=== PATIENT | male | born 1955 | race Caucasian/White ===

== ENCOUNTER 2016-06-06 17:45 | Emergency (ER) | payer BC ==
[~2016-06-06] VITALS: Ht 185.4 cm; Wt 117.9 kg
[2016-06-06 18:07] VITALS: BP 126/62
--- NOTE | 2016-06-06 18:21 | Emergency Room Report ---
History of Present Illness General Chief Complaint: General Complaint Source: Patient Present Illness HPI 60-year-old male presents emergency department complaining of needing his Port-A -Cath to be flushed. Patient states he has had his Port-A-Cath in place for several years and he previously received chemotherapy in an patient states that every 5 weeks he is to have it flushed and he has gone a week past due. he denies any symptoms at this time denies erythema increased temperature palpation and patient denies fatigue, weakness, nausea, vomiting, fevers, chills. Patient denies other complaints. Denies CP, Palpitations, LOC, AMS, dizziness, Changes in Vision, Sensation, paresthesias, or a sudden severe headache. Allergies: Coded Allergies: PENICILLIN G (Verified Allergy, Unknown, 06/06/16) Patient History Past Medical History: see triage record Past Surgical History: none Pertinent Family History: none Immunizations: UTD Reviewed Nursing Documentation: PMH: Agreed, PSxH: Agreed Nursing Documentation-PMH Past Medical History: No History, Except For Hx Cancer: Yes Hx Cerebrovascular Accident: Yes - 2012 Review of Systems All Other Systems: negative except mentioned in HPI Physical Exam Vital Signs Date Time Temp Pulse Resp B/P Pulse Ox O2 Delivery O2 Flow Rate FiO2 06/06/16 18:00 97.7 116 16 117/74 99 Room Air Sp02 EP Interpretation: reviewed, normal General Appearance: no apparent distress, alert, GCS 15, non-toxic Head: normocephalic, atraumatic Eyes: bilateral eye PERRL, bilateral eye normal inspection ENT: hearing grossly normal, normal pharynx, no angioedema, normal voice Neck: full range of motion, supple/symm/no masses Respiratory: chest non-tender, lungs clear, normal breath sounds, speaking full sentences Cardiovascular #1: regular rate, rhythm, no edema Gastrointestinal: non tender, no guarding Rectal: deferred Musculoskeletal: back normal, gait/station normal, normal range of motion, non- tender, no calf tenderness Neurologic: alert, oriented x3, responsive, motor strength/tone normal, sensory intact, speech normal Psychiatric: judgement/insight normal, memory normal, mood/affect normal, no suicidal/homicidal ideation Skin: normal color, no rash, warm/dry, well hydrated, other - subdermal palpable fb consistent with permacath located in right anterior upper chest, no erytema, no bruising, no TTP Lymphatic: no adenopathy Medical Decision Making PA Attestation Dr. cavanaugh is my supervising Physician whom patient management has been discussed with. Diagnostic Impression: Primary Impression: Encounter for care related to Port-a-Cath Additional Impression: Port-a-cath in place ER Course Pt. presents to the ED c/o requiring flushing of his ash-catheter he is one week past due for his catheter flushing every 5 weeks. Ddx considered but are not limited to blockage, cellulitis, sepsis Vital signs: are WNL, pt. is afebrile H&PE are most consistent with prior minute routine flushing of ash-catheter no infection noted no other complaints. ORDERS: none required at this time, the diagnosis is clinical ED INTERVENTIONS: -ED nurse successfully flushed perma-catheter with 2 consecutive flushes. DISCHARGE: At this time pt. is stable for d/c to home. Will provide printed patient care instructions, and any necessary prescriptions. Care plan and follow up instructions have been discussed with the patient prior to discharge. Last Vital Signs Date Time Temp Pulse Resp B/P Pulse Ox O2 Delivery O2 Flow Rate FiO2 06/06/16 18:07 98.1 81 16 126/62 99 Room Air Disposition: HOME, SELF-CARE Condition: Stable Patient Instructions: Medical Screening Exam Additional Instructions: Take medications as directed. Follow up with PCP in 3-5 days Return sooner to ED if new symptoms occur, or current symptoms become worse. Latoya Hernandez Jun 06, 2016 18:21
[2016-06-06 18:54] VITALS: BP 122/60
== END 2016-06-06 18:54 | disposition home or self-care (01) ==
LOC: EMR 18:20
DX: Z45.2 Encounter for adjustment and management of vascular access device (principal); Z85.9 Personal history of malignant neoplasm, unspecified; Z86.73 Personal history of transient ischemic attack (TIA), and cerebral infarction without residual deficits
CPT/HCPCS: 99282

== ENCOUNTER 2016-07-08 12:40 | Emergency (ER) | payer BC ==
[~2016-07-08] VITALS: Ht 185.4 cm; Wt 113.4 kg
[2016-07-08] MEDS ORDERED: Heplock Flush 100 units/ml 3 ml syr INJ SCH (13:15)
[2016-07-08 13:59] VITALS: BP 106/67
--- NOTE | 2016-07-08 14:08 | Emergency Room Report ---
History of Present Illness General Chief Complaint: General Complaint Source: Patient Present Illness HPI 60 YOF here to have right upper chest port-o-cath flushed. Has had it "for a while" for previous chemo. Was told to have it flushed monthly. Was here previously last month for same. Denies fever/chills, rash, redness to area. Feels well otherwise. Allergies: Coded Allergies: PENICILLIN G (Verified Allergy, Unknown, 06/06/16) Patient History Past Medical History: other - "Cancer" Past Surgical History: none Pertinent Family History: none Social History: Denies: alcohol use, drug use, smoking Immunizations: UTD Reviewed Nursing Documentation: PMH: Agreed, PSxH: Agreed Nursing Documentation-PMH Past Medical History: No History, Except For Hx Cardiac Problems: Yes - [place] x2 2014 3 stents placed Hx Cancer: Yes - unspecified Hx Cerebrovascular Accident: Yes - 3 yrs ago Review of Systems All Other Systems: negative except mentioned in HPI Physical Exam Vital Signs Date Time Temp Pulse Resp B/P Pulse Ox O2 Delivery O2 Flow Rate FiO2 07/08/16 12:50 97.5 75 16 103/70 97 Room Air Sp02 EP Interpretation: reviewed, normal General Appearance: normal inspection, well appearing, no apparent distress, alert, GCS 15, non-toxic Head: normocephalic, atraumatic Eyes: bilateral eye EOMI, bilateral eye PERRL ENT: normal ENT inspection, hearing grossly normal, normal voice Neck: normal inspection, full range of motion, supple, no bony tend Respiratory: normal inspection, lungs clear, normal breath sounds, no respiratory distress, no retraction, no wheezing Cardiovascular #1: regular rate, rhythm, no edema Gastrointestinal: normal inspection, normal bowel sounds, non tender, soft, no guarding, no hernia Genitourinary: no CVA tenderness Musculoskeletal: normal inspection, back normal, normal range of motion, Lavon' s Sign negative Neurologic: normal inspection, alert, oriented x3, responsive, crew leader gluing III-XII nml as tested, motor strength/tone normal, speech normal Psychiatric: normal inspection, judgement/insight normal, mood/affect normal Skin: normal inspection, normal color, no rash, other - Palpable port under skin right upper chest. No overlying erythema or sign of infection. Medical Decision Making Diagnostic Impression: Primary Impression: Encounter for generalized patient complaints ER Course Portocath flushed by RN No other acute issue in ED No sign of infection, VSS, afebrile. DC Last Vital Signs Date Time Temp Pulse Resp B/P Pulse Ox O2 Delivery O2 Flow Rate FiO2 07/08/16 13:59 66 18 106/67 99 Room Air 07/08/16 12:50 97.5 Status: improved Disposition: HOME, SELF-CARE Condition: Improved Referrals: NOT CHOSEN IPA/MD,REFERRING (PCP) Additional Instructions: - Please follow up with your primary care doctor in 1 month for port flushing ТАТЬЯНА ZHAO M.D. Jul 08, 2016 14:08
== END 2016-07-08 13:59 | disposition home or self-care (01) ==
LOC: EMR 13:24
DX: Z00.00 Encounter for general adult medical examination without abnormal findings (principal); C80.1 Malignant (primary) neoplasm, unspecified; I25.2 Old myocardial infarction; Z86.73 Personal history of transient ischemic attack (TIA), and cerebral infarction without residual deficits; Z95.5 Presence of coronary angioplasty implant and graft; Z88.0 Allergy status to penicillin
CPT/HCPCS: 99283; J1642